=== PATIENT | male | born 2000 | race Caucasian/White ===

== ENCOUNTER → 2023-12-02 10:08 | Outpatient (REF) | payer OTHER, SELFPAY | LOC: RCS 10:08 | PROVIDERS: ATTENDING PHYSICIAN Nurse Practitioner Family | DX: I49.9 Cardiac arrhythmia, unspecified (principal) | CPT/HCPCS: 93225; 93226 ==

== ENCOUNTER → 2023-12-09 15:01 | Outpatient (REF) | payer OTHER, SELFPAY | LOC: HWRCS 15:01 | PROVIDERS: ATTENDING PHYSICIAN Nurse Practitioner Family | DX: I51.89 Other ill-defined heart diseases (principal) | CPT/HCPCS: 93306 ==